=== PATIENT | male | born 1980 | race Caucasian/White ===

== ENCOUNTER 2020-07-16 15:21 | Emergency (ER) | payer OTHER ==
[~2020-07-16] VITALS: Ht 193 cm; Wt 104.3 kg
[2020-07-16] MEDS ORDERED: NORCO 7.5-3251 EACH PO (17:48)
== END 2020-07-16 18:09 | disposition home or self-care (01) ==
LOC: ED 15:21
DX: M25.562 Pain in left knee (principal); F17.200 Nicotine dependence, unspecified, uncomplicated
CPT/HCPCS: 80053; 85025; 93971; 99284-25; A9270